=== PATIENT | female | born 1940 | race Caucasian/White ===

== ENCOUNTER → 2016-11-17 | Outpatient (CLI) | payer MEDICARE, BC ==
[~2016-11-17] MED LIST: ASPIRIN EC81 M1 PO; ASPIRIN PO; CIPRO PO; FLAGYL PO; HCTZ PO; KLOR-CON PO; LANOXIN PO; LIPITOR PO; MULTI-VITAMIN1 EAC1 PO; MULTIVITAMIN W-1 TAB PO; NORVASC PO; PLAVIX PO; REQUIP5 MG PO; VICODIN 5/500 T1 TAB PO
--- NOTE | ~2016-11-17 | US37 ---
[facility] A Service of [facility] RADIOLOGY TEXT RESULTS PATIENT: VICTOR HUGO RUANO LOCATION: [facility] : 38 UNIT #: [id number] AGE: [address]: Rc Au MD SEX: F ORDER DR: [id number] [facility] [address] [place], [place] [address] [id number] O MR#: [id number] Acc #: [id number] NAME: VICTOR HUGO RUANO : 1940 SEX: F STUDY DATE/TIME: 11/17/2016 15:18 UNIT: [facility] ROOM: STUDY DESCRIPTION: US Carotid W/Doppler Bilateral Attending Physician: Rc Au M.D. Referring Physician: Rc Au M.D. Ordering Physician: Rc Au M.D. Primary Care Physician: Rc Au M.D. MEDICAL IMAGING REPORT This report is preliminary unless electronic signature is present EXAM Bilateral carotid duplex Doppler INDICATIONS Dizziness since July of 2016. Headache for the past 2 weeks. PROCEDURE Borja-scale color Doppler and spectral imaging bilateral carotid vertebral systems carotid flow is assessed using NASCET like methodology. COMPARISON 03/19/2015 FINDINGS Mild to moderate right and moderate to moderately severe left carotid calcification, particularly at the left carotid bulb. Peak systolic velocity in the right ICA measures 89 cm/sec left ICA measures 97 cm/sec. Flow in the external carotid and vertebral arteries is directed antegrade. The ICA/CCA ratio measures 2.1 on the right and 1.48 on the left. IMPRESSION Bilateral carotid plaque particularly at the left carotid bulb. There is no evidence for hemodynamically significant stenosis. Dictated by... Aaron Lau M.D. THIS IS AN ELECTRONICALLY VERIFIED REPORT Aaron Lau M.D. at 11/19/2016 9:51 PM VALARIE/jerod TD: 11/17/2016 23:04 JOB #: [id number] [facility] A Service of [facility] RADIOLOGY TEXT RESULTS PATIENT: VICTOR HUGO RUANO LOCATION: [facility] : 38 UNIT #: [id number] AGE: [address]: Rc Au MD SEX: F ORDER DR: MEDICAL IMAGING REPORT Page 1 of 1 COPY
== END | disposition home or self-care (01) ==
LOC: CNIV 14:59
DX: I65.21 Occlusion and stenosis of right carotid artery (principal); I65.22 Occlusion and stenosis of left carotid artery
CPT/HCPCS: 93880

== ENCOUNTER → 2016-12-13 | Outpatient (CLI) | payer MEDICARE, BC ==
--- NOTE | ~2016-12-13 | MY11 ---
[facility] A Service of [facility] RADIOLOGY TEXT RESULTS PATIENT: VICTOR HUGO RUANO LOCATION: [facility] : 38 UNIT #: [id number] AGE: [address]: Rc Au MD SEX: F ORDER DR: [id number] [facility] [address] [place], [place] [address] [id number] O MR#: [id number] Acc #: [id number] NAME: VICTOR HUGO RUANO : 1940 SEX: F STUDY DATE/TIME: 12/13/2016 15:17 UNIT: [facility] ROOM: STUDY DESCRIPTION: MY Mammogram Screening Dig Dell Attending Physician: Rc Au M.D. Ordering Physician: Rc Au M.D. Primary Care Physician: Rc Au M.D. MEDICAL IMAGING REPORT This report is preliminary unless electronic signature is present EXAM Bilateral digital screening mammogram with CAD. COMPARISON June 29, 2015, February 17, 2011, February 14, 2011, February 24, 2009, March 15, 2007, and March 13, 2006. INDICATIONS Breast cancer screening. 76-year-old asymptomatic female who reports a mother and a daughter with breast cancer. FINDINGS There are scattered fibroglandular densities. Cardiac loop recorder is seen in the medial left breast on CC projection only. No suspicious findings are seen in either breast. IMPRESSION No mammographic evidence of malignancy. Continued annual screening mammography and clinical breast exam are recommended. Patients over the age of 40 are entered into a reminder system with target due date for the next mammogram. A result letter will also be sent to the patient. BIRADS: 2 Benign findings. Dictated by... Stevan Chanel M.D. THIS IS AN ELECTRONICALLY VERIFIED REPORT Stevan Chanel M.D. at 12/15/2016 4:08 PM [facility] A Service of [facility] RADIOLOGY TEXT RESULTS PATIENT: VICTOR HUGO RUANO LOCATION: [facility] : 38 UNIT #: [id number] AGE: [address]: Rc Au MD SEX: F ORDER DR: VICTORIA/helder TD: 12/13/2016 19:40 JOB #: [id number] MEDICAL IMAGING REPORT Page 1 of 1 COPY
== END | disposition home or self-care (01) ==
LOC: CWCC 15:11
DX: Z12.31 Encounter for screening mammogram for malignant neoplasm of breast (principal); Z80.3 Family history of malignant neoplasm of breast
CPT/HCPCS: G0202